=== PATIENT | male | born 1950 | race Caucasian/White ===

== ENCOUNTER 2016-12-07 10:16 | Emergency (ER) | payer MEDICARE, OTHER ==
[~2016-12-07] VITALS: Ht 177.8 cm; Wt 104.3 kg
[~2016-12-07 10:16] MED LIST: FENO145T20 PO; FERR325T50 PO; FOLI1TAB6 PO; GABA-497 PO; LISI10TA6 PO; NAFC1INJ IJ; OMEP20TA12 PO; ONDA8TAB6 PO; TAM04C PO
[2016-12-07 10:33] VITALS: BP 131/91
[2016-12-07] MEDS ORDERED: KETOROLAC TROMETH 60MG/2ML VIAL IM ONE (11:45)
== END 2016-12-07 12:02 | disposition home or self-care (01) ==
LOC: ER 10:16
DX: G44.209 Tension-type headache, unspecified, not intractable (principal); H65.01 Acute serous otitis media, right ear; I25.10 Atherosclerotic heart disease of native coronary artery without angina pectoris; K21.9 Gastro-esophageal reflux disease without esophagitis; E78.5 Hyperlipidemia, unspecified; I10 Essential (primary) hypertension
CPT/HCPCS: 70450; 96372; 99284; J1885

== ENCOUNTER 2020-06-03 12:40 | Inpatient (IN) | payer OTHER ==
[~2020-06-03] VITALS: Ht 172.7 cm; Wt 102.7 kg
[~2020-06-03 12:40] MED LIST changes: -FENO145T20 PO; +FENO145T27 PO; -GABA-497 PO; +GABA300C10 PO; +LISI-648 PO; -LISI10TA6 PO; -OMEP20TA12 PO; +OMEP5TAB PO; +ONDA-143 PO; -ONDA8TAB6 PO
[2020-06-03 13:58] LABS: Basophils # (auto) 0 10 ^3/uL (0-0.2); Eosinophils # (auto) 0.1 10 ^3/uL (0-0.8); Hemoglobin 10.1 g/dL (13.5-17.5); Monocytes # (auto) 0.6 10 ^3/uL (0-1.3); White Blood Cell 7.2 10^3/uL (4.4-10.8)
[2020-06-03 14:00] LABS: Basophils % (auto) 0.5 % (0.0-2.0); Eosinophils % (auto) 1.3 % (0.0-7.0); Hematocrit 31.2 % (41.0-53.0); Lymphocytes # (auto) 1.9 10 ^3/uL (0.4-5.4); Lymphocytes % (auto) 26.2 % (10.0-50.0); Mean Corpuscular Hemoglobin 25.6 pg (28.0-32.0); Mean Corpuscular Hgb Conc. 32.2 g/dL (32.0-36.0); Mean Corpuscular Volume 79.4 fL (80.0-100.0); Monocytes % (auto) 8.3 % (0.0-12.0); Neutrophils # (auto) 4.6 10 ^3/uL (1.6-8.6); Neutrophils % (auto) 63.7 % (37.0-80.0); Platelet Count (auto) 351 10^3/uL (140-450); Red Blood Cells 3.93 10^6/uL (4.5-5.90)
[2020-06-03 14:06] LABS: Red Cell Distribution Width 20.3 % (11.8-14.3)
[2020-06-03 14:13] LABS: INR 1.02 (0.9-1.15); Partial Thromboplastin Time 28.3 sec (23.0-31.2)
[2020-06-03 14:34] LABS: Albumin 3.6 g/dL (3.4-5.0); Anion Gap 5 (5-15); Blood Urea Nitrogen 14 mg/dL (7-18); Calcium 7.7 mg/dL (8.5-10.1); Carbon Dioxide 23 mmol/L (21-32); Chloride 111 mmol/L (98-107); Glucose 86 mg/dL (74-106); Magnesium 2.1 mg/dL (1.6-2.6); Potassium 4.5 mmol/L (3.5-5.1); Sodium 139 mmol/L (136-145)
[2020-06-03 14:41] LABS: Alanine Aminotransferase 16 U/L (16-61); Alkaline Phosphatase 73 U/L (45-117); Aspartate Aminotransferase 10 U/L (15-37); BUN/Creatinine Ratio 19.7; Bilirubin, Total 0.2 mg/dL (0.2-1.0); GFR African American 141 mL/min; GFR Non-African American 116 mL/min; Total Protein 6.6 g/dL (6.4-8.2)
[2020-06-03] MEDS ORDERED: ASPirin 81 mg TAB PO ONE (17:30)
[2020-06-03] MEDS ORDERED: NITROGLYCERIN 0.4 MG SL TAB SL PRN (17:30)
[2020-06-03] MEDS ORDERED: MORPHINE SULF INJ 2 MG/ML SYRINGE 1ML IV PRN ×2 (17:30→18:00)
[2020-06-03] MEDS ORDERED: ACETAMINOPHEN 500 MG TAB PO PRN (18:00)
[2020-06-03] MEDS ORDERED: ONDANSETRON HCL 4 MG/2 ML VIAL IV PRN (18:00)
[2020-06-03] MEDS ORDERED: traMADol HCL 50 MG TAB PO PRN (18:00)
[2020-06-03] MEDS ORDERED: LACTULOSE 20Gm/30ML SOLN PO PRN (18:00)
[2020-06-03] MEDS ORDERED: TEMAZEPAM 15 MG CAP PO PRN (18:00)
[2020-06-03] MEDS ORDERED: ENOXAPARIN SOD 100 MG/1 ML SYRINGE SC ONE (19:00)
[2020-06-03] MEDS: ATORVASTATIN 20 MG TAB PO SCH (21:57)
[2020-06-03] MEDS: FAMOTIDINE 20 MG TAB PO SCH (21:57)
[2020-06-04 08:10] VITALS: BP 146/82
[2020-06-04] MEDS ORDERED: MECL25TA18 PO (09:25)
[2020-06-04] MEDS ORDERED: SIMV-13 PO (09:25)
[2020-06-04] MEDS ORDERED: HYDR200T36 PO (09:25)
[2020-06-04] MEDS ORDERED: RASA1TAB4 PO (09:25)
[2020-06-04] MEDS ORDERED: NAP500T PO (09:25)
[2020-06-04] MEDS: FAMOTIDINE 20 MG TAB PO SCH ×2 (09:55→22:24)
[2020-06-04] MEDS: ASPirin 81 mg TAB PO SCH (09:55)
[2020-06-04] MEDS ORDERED: ENOXAPARIN SOD 40 MG/0.4 ML SYRINGE SC SCH (10:00)
[2020-06-04] MEDS: ENOXAPARIN SOD 100 MG/1 ML SYRINGE SC SCH ×2 (10:03→22:24)
[2020-06-04] MEDS ORDERED: IOHEXOL 350 MG/ML 100ML IJ ONE (12:58)
[2020-06-04 16:25] VITALS: BP 138/84
[2020-06-04 16:34] LABS: Cholesterol 166 mg/dL (< 200); HDL Cholesterol 48 mg/dL (40-59); LDL Cholesterol 104 mg/dL (< 100); Triglycerides 137 mg/dL (< 150)
[2020-06-04] MEDS ORDERED: SODIUM CHLORIDE 0.9% 1,000 ML IV ONE (20:30)
[2020-06-04 22:00] VITALS: BP 140/79
[2020-06-04] MEDS: ATORVASTATIN 20 MG TAB PO SCH (22:24)
[2020-06-05 05:00] VITALS: BP 149/84
[2020-06-05 05:54] LABS: Calcium 8.7 mg/dL (8.5-10.1); Potassium 3.7 mmol/L (3.5-5.1)
[2020-06-05 05:57] LABS: BUN/Creatinine Ratio 21.4
[2020-06-05 08:00] VITALS: BP 147/90
[2020-06-05] MEDS: ENOXAPARIN SOD 100 MG/1 ML SYRINGE SC SCH (10:00)
[2020-06-05] MEDS: FAMOTIDINE 20 MG TAB PO SCH (10:12)
[2020-06-05] MEDS: ASPirin 81 mg TAB PO SCH (10:13)
[2020-06-05 12:42] VITALS: BP 150/84
[2020-06-05] MEDS ORDERED: IODIXANOL 320MG/ML 100ML BTL IV ONE (12:44)
[2020-06-05] MEDS ORDERED: LIDOCAINE 2%HCL (LOCAL ANESTH.) INJ 20ML MDV ONE (12:44)
[2020-06-05] MEDS ORDERED: ANGIOMAX 250 MG VIAL IV ONE (12:56)
[2020-06-05] MEDS ORDERED: SODIUM CHL 0.9% 50 ML ONE (12:57)
[2020-06-05] MEDS ORDERED: MIDAZOLAM HCL 1MG/1ML-2 ML VIAL ONE (12:57)
[2020-06-05] MEDS ORDERED: fentaNYL CITRATE 100 MCG/2 ML VL ONE (12:57)
[2020-06-05] MEDS ORDERED: HEPARIN SODIUM (PORCINE) 5000 UNITS/ML 1ML VIAL ONE (12:57)
[2020-06-05] MEDS ORDERED: VERAPAMIL 2.5MG/ML INJ 2ML VIAL IV ONE (12:57)
[2020-06-05 17:00] VITALS: BP 145/83
[2020-06-05] MEDS ORDERED: APIX5TAB4 PO (18:37)
[2020-06-05 19:25] VITALS: BP 145/83
== END 2020-06-05 20:20 | disposition home health service (06) | DRG 287 ==
LOC: ER 12:40 → TELE 12:41 → TELE-CENTR 06-04 06:42
PROVIDERS: ADMIT Internal Medicine; ATTEND Internal Medicine
PROC: 4A023N7 Measurement of Cardiac Sampling and Pressure, Left Heart, Percutaneous Approach (ICD-10-PCS; principal; 2020-06-05)
PROC: B2111ZZ Fluoroscopy of Multiple Coronary Arteries using Low Osmolar Contrast (ICD-10-PCS; 2020-06-05)
PROC: B2151ZZ Fluoroscopy of Left Heart using Low Osmolar Contrast (ICD-10-PCS; 2020-06-05)
DX: R07.9 Chest pain, unspecified (principal); I82.411 Acute embolism and thrombosis of right femoral vein; I50.42 Chronic combined systolic (congestive) and diastolic (congestive) heart failure; I25.10 Atherosclerotic heart disease of native coronary artery without angina pectoris; K21.9 Gastro-esophageal reflux disease without esophagitis; I45.10 Unspecified right bundle-branch block; M19.90 Unspecified osteoarthritis, unspecified site; N20.0 Calculus of kidney; N40.0 Benign prostatic hyperplasia without lower urinary tract symptoms; Z20.822 Contact with and (suspected) exposure to COVID-19; I11.0 Hypertensive heart disease with heart failure; E78.5 Hyperlipidemia, unspecified; E66.01 Morbid (severe) obesity due to excess calories; D63.8 Anemia in other chronic diseases classified elsewhere; D50.9 Iron deficiency anemia, unspecified; Z68.35 Body mass index [BMI] 35.0-35.9, adult; Z80.1 Family history of malignant neoplasm of trachea, bronchus and lung; Z79.01 Long term (current) use of anticoagulants; Z80.8 Family history of malignant neoplasm of other organs or systems; Z82.49 Family history of ischemic heart disease and other diseases of the circulatory system; Z85.828 Personal history of other malignant neoplasm of skin; Z83.3 Family history of diabetes mellitus; Z86.73 Personal history of transient ischemic attack (TIA), and cerebral infarction without residual deficits; Z87.442 Personal history of urinary calculi
CPT/HCPCS: 36415; 71045; 71275; 80048; 80053; 80061; 82550; 83735; 83880; 84443; 84484; 85025; 85379; 85610; 85652; 85730; 86141; 87426; 93005; 93458; 93970; 99152; 99153; G0378; J2250; J2405; Q9967

== ENCOUNTER 2023-10-14 08:58 | Inpatient (IN) | payer OTHER ==
[~2023-10-14] VITALS: Ht 185.4 cm; Wt 104.5 kg
[~2023-10-14 08:58] MED LIST changes: +APIX5TAB4 PO; +BACI1OIN45 EX; +CEFD300C2 PO; -FENO145T27 PO; -FERR325T50 PO; -FOLI1TAB6 PO; +FURO1TAB33 PO; +GABA-1250 PO; -GABA300C10 PO; +HYDR200T36 PO; -LISI-648 PO; +LISI10TA34 PO; +MECL-90 PO; -NAFC1INJ IJ; -ONDA-143 PO; +RASA1TAB4 PO; +SIMV40TA18 PO; +SPIR25TA PO; -TAM04C PO; +TAMS-35 PO; +TRAM50TA2 PO
[2023-10-14 09:25] VITALS: PULSE 57; RESP 12; O2SAT 98
[2023-10-14 09:42] LABS: Basophils # (auto) 0 10 ^3/uL (0-0.2); Basophils % (auto) 0.7 % (0.0-2.0); Eosinophils # (auto) 0.1 10 ^3/uL (0-0.8); Eosinophils % (auto) 1.3 % (0.0-7.0); Hematocrit 31.5 % (41.0-53.0); Hemoglobin 9.7 g/dL (13.5-17.5); Lymphocytes % (auto) 34.6 % (10.0-50.0); Mean Corpuscular Hemoglobin 25.6 pg (28.0-32.0); Mean Corpuscular Hgb Conc. 30.6 g/dL (32.0-36.0); Mean Corpuscular Volume 83.7 fL (80.0-100.0); Monocytes # (auto) 0.5 10 ^3/uL (0-1.3); Neutrophils # (auto) 3.3 10 ^3/uL (1.6-8.6); Neutrophils % (auto) 55.4 % (37.0-80.0); Red Blood Cells 3.77 10^6/uL (4.5-5.90); Red Cell Distribution Width 18.4 % (11.8-14.3); White Blood Cell 5.9 10^3/uL (4.4-10.8)
[2023-10-14 10:08] LABS: Albumin 4.2 g/dL (3.2-4.8); Alkaline Phosphatase 87 U/L (46-116); Anion Gap 10 (5-15); Aspartate Aminotransferase 9 U/L (13-40); BUN/Creatinine Ratio 26.5 (10.0-20.0); Blood Alcohol < 3.0 mg/dL (<10); Blood Urea Nitrogen 22 mg/dL (9-23); Calcium 8.8 mg/dL (8.5-10.1); Carbon Dioxide 22 mmol/L (20-30); Chloride 107 mmol/L (98-107); Glucose 98 mg/dL (74-106); Sodium 139 mmol/L (136-145)
[2023-10-14 10:09] LABS: Bilirubin, Total 0.2 mg/dL (0.2-1.0); Total Protein 6.5 g/dL (5.7-8.2)
[2023-10-14 10:13] LABS: Alanine Aminotransferase 9 U/L (7-40)
[2023-10-14 11:18] LABS: Urine Bacteria None Seen /hpf (None Seen)
[2023-10-14 11:44] LABS: Urine Blood Negative /uL (Negative); Urine Budding Yeast OCCASIONAL /hpf (None Seen); Urine Clarity Clear (Clear); Urine Color Yellow (Yellow); Urine Hyaline Cast MANY /lpf (0 - 2); Urine Protein, UAD TRACE (Negative); Urine Specific Gravity 1.044 (1.001-1.035); Urine Urobilinogen Normal (Negative); Urine WBC 1 /hpf (0 - 3); Urine pH 5.5 (5.0-9.0)
[2023-10-14 12:34] LABS: Amphetamine Screen, Urine Neg (NEGATIVE); Barbiturate Scree,Urine Neg (NEGATIVE); Cocaine Screen, Urine Neg (NEGATIVE); Opiate Scree,Urine Neg (NEGATIVE)
[2023-10-14 12:35] LABS: Benzodiazephine Screen, Urine Neg (NEGATIVE); Cannabinoid Screen, Urine Neg (NEGATIVE); Phencyclidine Screen, Urine Neg (NEGATIVE)
[2023-10-14] MEDS ORDERED: NITROGLYCERIN 0.4 MG SL TAB SL PRN (17:00)
[2023-10-14] MEDS ORDERED: DOCUSATE SOD 100 MG CAP PO PRN (17:00)
[2023-10-14] MEDS ORDERED: MORPHINE SULFATE INJ 2 MG/ml SYRG IV PRN ×2 (17:00)
[2023-10-14] MEDS ORDERED: ACETAMINOPHEN 325 MG TAB PO PRN (17:00)
[2023-10-14] MEDS ORDERED: HYDROcodone-ACET 5/325MG TAB PO PRN (17:00)
[2023-10-14] MEDS ORDERED: ONDANSETRON HCL 4 MG/2 ML VIAL IV PRN (17:00)
[2023-10-14 19:30] VITALS: PULSE 72; RESP 18; O2SAT 96
[2023-10-14] MEDS: APIXABAN 5 MG TAB PO SCH (22:28)
[2023-10-14] MEDS: traMADol HCL 50 MG TAB PO SCH (22:29)
[2023-10-15 04:28] LABS: Anion Gap 7 (5-15); Carbon Dioxide 22 mmol/L (20-30); Chloride 109 mmol/L (98-107); Potassium 3.9 mmol/L (3.5-5.1); Sodium 138 mmol/L (136-145)
[2023-10-15 04:29] LABS: Calcium 8.7 mg/dL (8.7-10.4)
[2023-10-15 04:32] LABS: Eosinophils # (auto) 0.1 10 ^3/uL (0-0.8); Hematocrit 31.3 % (41.0-53.0); Mean Corpuscular Hemoglobin 25.6 pg (28.0-32.0); Monocytes # (auto) 0.5 10 ^3/uL (0-1.3); Neutrophils # (auto) 3.8 10 ^3/uL (1.6-8.6); Nucleated Red Blood Cells % 0.1 %; White Blood Cell 6.5 10^3/uL (4.4-10.8)
[2023-10-15 04:34] LABS: BUN/Creatinine Ratio 25.4 (10.0-20.0); Basophils # (auto) 0 10 ^3/uL (0-0.2); Basophils % (auto) 0.7 % (0.0-2.0); Blood Urea Nitrogen 15 mg/dL (9-23); Eosinophils % (auto) 1.6 % (0.0-7.0); Glucose 82 mg/dL (74-106); Hemoglobin 9.7 g/dL (13.5-17.5); Lymphocytes % (auto) 31.5 % (10.0-50.0); Mean Corpuscular Hgb Conc. 30.9 g/dL (32.0-36.0); Mean Corpuscular Volume 83.1 fL (80.0-100.0); Monocytes % (auto) 7.3 % (0.0-12.0); Neutrophils % (auto) 58.9 % (37.0-80.0); Red Blood Cells 3.77 10^6/uL (4.5-5.90); Red Cell Distribution Width 18.5 % (11.8-14.3)
[2023-10-15 05:00] VITALS: TEMP 97.6
[2023-10-15 08:12] VITALS: PULSE 81; RESP 16; O2SAT 96
[2023-10-15] MEDS ORDERED: ENOXAPARIN SOD 30 MG/0.3 ML SYRINGE SC SCH (10:00)
[2023-10-15] MEDS: SPIRONOLACTONE 25 MG TAB PO SCH (10:14)
[2023-10-15] MEDS: ATORVASTATIN 20 MG TAB PO SCH (10:15)
[2023-10-15] MEDS: FUROSEMIDE 20 MG TAB PO SCH (10:18)
[2023-10-15] MEDS ORDERED: GABA800T97 PO (13:40)
[2023-10-15] MEDS ORDERED: PANT40TA2 PO (13:43)
[2023-10-15] MEDS ORDERED: METO1TAB77 PO (13:43)
[2023-10-15 14:02] VITALS: BP 112/65; PULSE 108; RESP 20; O2SAT 97
== END 2023-10-15 17:37 | disposition home or self-care (01) | DRG 640 ==
LOC: ER 08:58 → EDUNIT# 08:58 → EDBD 08:58 → TELE 16:57
PROVIDERS: ADMIT Internal Medicine; ATTEND Internal Medicine
DX: E86.0 Dehydration (principal); G93.41 Metabolic encephalopathy; D64.9 Anemia, unspecified; I50.9 Heart failure, unspecified; I25.10 Atherosclerotic heart disease of native coronary artery without angina pectoris; I11.0 Hypertensive heart disease with heart failure; K21.9 Gastro-esophageal reflux disease without esophagitis; E78.5 Hyperlipidemia, unspecified; G20.A1 Parkinson's disease without dyskinesia, without mention of fluctuations; N40.0 Benign prostatic hyperplasia without lower urinary tract symptoms; I48.0 Paroxysmal atrial fibrillation; Z86.73 Personal history of transient ischemic attack (TIA), and cerebral infarction without residual deficits; Z85.828 Personal history of other malignant neoplasm of skin; Z87.442 Personal history of urinary calculi; Z79.01 Long term (current) use of anticoagulants; R41.0 Disorientation, unspecified
CPT/HCPCS: 36415; 70450; 70551; 80048; 80053; 80307; 80320; 81001; 82140; 82607; 84484; 85025; 87040; 93005; G0378

== ENCOUNTER 2024-08-11 18:29 | Emergency (ER) | payer OTHER ==
[~2024-08-11] VITALS: Ht 175.3 cm; Wt 100.0 kg
[~2024-08-11 18:29] MED LIST changes: -BACI1OIN45 EX; -CEFD300C2 PO; -GABA-1250 PO; +GABA800T97 PO; -HYDR200T36 PO; -LISI10TA34 PO; -MECL-90 PO; +METO1TAB77 PO; -OMEP5TAB PO; +PANT40TA2 PO
--- NOTE | 2024-08-11 18:51 | ED.PDOC ---
History of Present Illness HPI Comments 74-year-old male presents with a chief complaint of generalized weakness, nausea, vomiting, diarrhea, and numbness x onset Saturday (08/07/2024). Per EMS, patient had a cancer spot removed on Saturday from his right forehead and received an antibiotic shot that he does not know what it was. Patient mentions that now he feels weaker than his baseline, has numbness to his bilateral feet, and has had N/V/D. Patient is hypertensive on arrival at 165/90. Blood sugar was 95. Time Seen by MD: 18:40 Primary Care Provider: BRAD Reviewed Notes: Medications, Allergies Allergies: Coded Allergies: NO KNOWN ALLERGIES (Unverified , 01/11/12) Home Meds Active Scripts Spironolactone (Aldactone) 25 Mg Tab, 1 TAB PO DAILY for 10 Days, #10 TAB 1 Refill Prov:CATHI CHAUDHARI MD 04/11/22 Furosemide (Lasix) 20 Mg Tb, 1 TAB PO DAILY for 10 Days, #10 TAB 1 Refill Prov:CATHI CHAUDHARI MD 04/11/22 Tramadol Hcl (Tramadol Hcl) 50 Mg Tab, 50 MG PO TID for 5 Days, #15 TAB Prov:CATHI CHAUDHARI MD 04/11/22 Apixaban Base (Eliquis Starter Pack) 5 Mg Tab, 5 MG PO UD, #74 TAB Take 10 mg by mouth every 12 hours for 7 days then 5 mg by mouth every 12 hours. Prov:MARCIA CULVER MD 06/05/20 Reported Medications Metoprolol Tartrate (Lopressor) 50 Mg Tab, 1 TAB PO BID 10/15/23 Pantoprazole Sodium Sesquihydr (Protonix) 40 Mg Tab, 1 TAB PO DAILY 10/15/23 Gabapentin (Gabapentin) 800 Mg Tab, 1 TAB PO TID 10/15/23 Rasagiline Mesylate (Rasagiline Mesylate) 1 Mg Tab, 1 TAB PO DAILY 06/04/20 Simvastatin (Simvastatin) 40 Mg Tab, 40 MG PO DAILY for 30 Days 06/04/20 Tamsulosin Hcl (Flomax) 0.4 Mg Cap, 2 CAP PO HS 01/11/12 Information Source: Patient, Emergency Med Personnel Mode of Arrival: EMS Severity: Moderate Timing: Days Duration: Since onset Prehospital treatment: Accucheck, Technology Administrator Past Medical History PAST MEDICAL HISTORY: Anemia, Arthritis, CAD, Cancer, CHF, GERD, High Lipids, HTN, Kidney Stones, TIA Surgical History: Hernia Repair Family History Family History: Unknown Social History Smoker: Non-Smoker Alcohol: Denies ETOH Use Drugs: Denies Drug Use Lives In: Home Constitutional: reports: weakness; denies: chills, diaphoresis, fatigue, fever, malaise, sweats, others EENTM: denies: blurred vision, double vision, ear bleeding, ear discharge, ear drainage, ear pain, ear ringing, eye pain, eye redness, hearing loss, mouth pain, mouth swelling, nasal discharge, nose bleeding, nose congestion, nose pain, photophobia, tearing, throat pain, throat swelling, voice changes, others Respiratory: denies: cough, hemoptysis, orthopnea, SOB at rest, shortness of breath, SOB with excertion, stridor, wheezing, others Cardiovascular: denies: chest pain, dizzy spells, diaphoresis, Dyspnea on exertion, edema, irregular heart beat, left arm pain, lightheadedness, palpit ations, PND, syncope, others Gastrointestinal: reports: diarrhea, nausea, vomiting; denies: abdomen distended, abdominal pain, blood streaked bowels, constipated, dysphagia, difficulty swallowing, hematemesis, melena, poor appetite, poor fluid intake, rectal bleeding, rectal pain, others Genitourinary: denies: burning, dysuria, flank pain, frequency, hematuria, incontinence, penile discharge, penile sore, pain, testicle pain, testicle swelling, urgency, others Neurological: reports: numbness; denies: dizziness, fainting, headache, left sided numbness, left sided weakness, paresthesia, pre-existing deficit, right sided numbness, right sided weakness, seizure, speech problems, tingling, tremors, weakness, others Musculoskeletal: denies: back pain, gout, joint pain, joint swelling, muscle pain, muscle stiffness, neck pain, others Integumetry: denies: bruises, change in color, change in hair/nails, dryness, laceration, lesions, lumps, rash, wounds, others Allergic/Immunocompromised: denies: Difficulty Healing, Frequent Infections, Hives, Itching, others Hematologic/Lymphatic: denies: anemia, blood clots, easy bleeding, easy bruising, swollen glands, others Endocrine: denies: excessive hunger, excessive sweating, excessive thirst, excessive urination, flushing, intolerance to cold, intolerance to heat, unexplained weight gain, unexplained weight loss, others Psychiatric: denies: anxiety, bipolar disorder, depression, hopeless, panic disorder, schizophrenia, sleepless, suicidal, others All Other Systems: Reviewed and Negative Physical Exam General Appearance: No Apparent Distress, Normal HEENT: Normal ENT Inspection, Pharynx Normal, TMs Normal Neck: Full Range of Motion, Non-Tender, Normal, Normal Inspection Respiratory: Chest Non-Tender, Lungs Clear, No Accessory Muscle Use, No Respiratory Distress, Normal Breath Sounds Cardiovascular: No Edema, No JVD, No Murmur, No Gallop, Normal Peripheral Pulses, Regular Rate/Rhythm Breast Exam: Deferred Gastrointestinal: No Organomegaly, Non Tender, No Pulsatile Mass, Normal Bowel Sounds, Soft Genitalia: Deferred Pelvic: Deferred Rectal: Deferred Extremities: No calf tenderness, Normal capillary refill, Normal inspection, Normal range of motion, Non-tender, No pedal edema Musculoskeletal : Apperance: Normal Neurologic: Alert, national account representative II-XII nml as Tested, No Motor Deficits, Normal Affect, Normal Mood, No Sensory Deficits Cerebellar Function: Normal Reflexes: Normal Skin: Dry, Normal Color, Warm Lymphatic: No Adenopathy Was a procedure done? Was a procedure done?: No Differential Dx Considerations may include: ACS, CVA, viral syndrome, electrolyte abnormality X-Ray, Labs, Meds, VS Vital Signs Date Time Temp Pulse Resp B/P (MAP) Pulse Ox O2 Delivery O2 Flow Rate FiO2 08/11/24 19:19 99.0 74 24 177/88 (117) 98 99.0 08/11/24 18:35 81 08/11/24 18:35 81 Lab Test 08/11/24 22:52 08/11/24 21:14 08/11/24 19:36 Range/Units Troponin I High Sensitivity Pending 11 13 </=54 ng/L White Blood Count 6.0 4.4-10.8 10^3/uL Red Blood Count 4.34 L 4.5-5.90 10^6/uL Hemoglobin 10.2 L 13.5-17.5 g/dL Hematocrit 33.8 L 41.0-53.0 % Mean Corpuscular Volume 77.8 L 80.0-100.0 fL Mean Corpuscular Hemoglobin 23.6 L 28.0-32.0 pg Mean Corpuscular Hemoglobin Concent 30.3 L 32.0-36.0 g/dL Red Cell Distribution Width 19.5 H 11.8-14.3 % Platelet Count 341 140-450 10^3/uL Mean Platelet Volume 6.5 L 6.9-10.8 fL Neutrophils (%) (Auto) 60.9 37.0-80.0 % Lymphocytes (%) (Auto) 28.8 10.0-50.0 % Monocytes (%) (Auto) 8.9 0.0-12.0 % Eosinophils (%) (Auto) 0.9 0.0-7.0 % Basophils (%) (Auto) 0.5 0.0-2.0 % Neutrophils # (Auto) 3.7 1.6-8.6 10 ^3/uL Lymphocytes # (Auto) 1.7 0.4-5.4 10 ^3/uL Monocytes # (Auto) 0.5 0-1.3 10 ^3/uL Eosinophils # (Auto) 0.1 0-0.8 10 ^3/uL Basophils # (Auto) 0 0-0.2 10 ^3/uL Nucleated Red Blood Cells 0.1 % Sodium Level 140 136-145 mmol/L Potassium Level 4.4 3.5-5.1 mmol/L Chloride Level 106 98-107 mmol/L Carbon Dioxide Level 24 20-31 mmol/L Anion Gap 10 5-15 Blood Urea Nitrogen 9 9-23 mg/dL Creatinine 0.70 0.700-1.30 mg/dL Glomerular Filtration Rate Calc 96 >90 mL/min BUN/Creatinine Ratio 12.9 10.0-20.0 Serum Glucose 108 H 74-106 mg/dL Calcium Level 10.6 H 8.7-10.4 mg/dL Time of 1ST Reevaluation: 19:10 Reevaluation 1ST: Unchanged Patient Education/Counseling: Diagnosis, Treatment, Prognosis Family Education/Counseling: No Family Present Departure 1 Departure Time of Disposition: 23:04 (Patient with new onset paresthesias and numbness and tingling in his mostly on was weakness pain patient's x-ray labs are benign. Limit patient further workup. Radiologist recommends echo and Cardiology consult baseline cardiomegaly on chest x-ray.) Impression: Primary Impression: Near syncope Additional Impressions: Paresthesias Generalized weakness Disposition: ADMITTED INPATIENT Admit to: Med Surg Condition: Serious Critical Care Note Critical Care Time?: No Stability Stability form required: No Heart Score Heart Score: Heart Score Response (Comments) Value History N/A 0 EKG N/A 0 Age N/A 0 Risk Factors N/A 0 Troponin N/A 0 Total 0 I personally scribed for EMILY MARI MD ([email or web address]) on 08/11/24 at 18:51. Electronically submitted by Oliver Kumar [email or web address]). EMILY MARI MD Aug 11, 2024 18:51
--- NOTE | 2024-08-11 18:57 | ECG ---
[facility] Test Date: 2024-08-11 Test Time: 18:35:52 Pat Name: YESENIA CAPUTO Department: ED Room: Gender: M Casting Operator: gp : [id number] Requested By: EMILY MARI Order Number: [id number] Reading MD: Geoffrey Contreras Measurements Intervals [place] Rate: 81 P: 66 PA: 161 QRS: 4 QRSD: 151 T: 27 QT: 441 QTc: 512 Interpretive Statements Sinus rhythm Atrial premature complex Sinus pause Right bundle branch block Baseline wander in lead(s) V6 Electronically Signed On 08-12-2024 13:19:30 PDT by Geoffrey Contreras Please click the below link to view image of tracing.
[2024-08-11 19:45] LABS: Basophils # (auto) 0 10 ^3/uL (0-0.2); Basophils % (auto) 0.5 % (0.0-2.0); Eosinophils # (auto) 0.1 10 ^3/uL (0-0.8); Eosinophils % (auto) 0.9 % (0.0-7.0); Hematocrit 33.8 % (41.0-53.0); Hemoglobin 10.2 g/dL (13.5-17.5); Lymphocytes # (auto) 1.7 10 ^3/uL (0.4-5.4); Lymphocytes % (auto) 28.8 % (10.0-50.0); Mean Corpuscular Hemoglobin 23.6 pg (28.0-32.0); Mean Corpuscular Hgb Conc. 30.3 g/dL (32.0-36.0); Mean Corpuscular Volume 77.8 fL (80.0-100.0); Monocytes # (auto) 0.5 10 ^3/uL (0-1.3); Monocytes % (auto) 8.9 % (0.0-12.0); Neutrophils # (auto) 3.7 10 ^3/uL (1.6-8.6); Neutrophils % (auto) 60.9 % (37.0-80.0); Nucleated Red Blood Cells % 0.1 %; Platelet Count (auto) 341 10^3/uL (140-450); Red Blood Cells 4.34 10^6/uL (4.5-5.90); Red Cell Distribution Width 19.5 % (11.8-14.3)
[2024-08-11 19:54] LABS: Chloride 106 mmol/L (98-107); Potassium 4.4 mmol/L (3.5-5.1); Sodium 140 mmol/L (136-145)
[2024-08-11 19:55] LABS: Anion Gap 10 (5-15); Carbon Dioxide 24 mmol/L (20-31)
[2024-08-11 20:00] LABS: BUN/Creatinine Ratio 12.9 (10.0-20.0)
[2024-08-11 20:08] LABS: Blood Urea Nitrogen 9 mg/dL (9-23); Calcium 10.6 mg/dL (8.7-10.4); Glucose 108 mg/dL (74-106)
--- NOTE | 2024-08-11 22:37 | DVH ---
CHEST RADIOGRAPH Indication: weakness, parasthesias Technique: Single frontal view of the chest was obtained Comparison: CHEST PORTABLE on DOS: 06/03/20 FINDINGS: Cardiomegaly. Slightly prominent pulmonary arteries no infiltrates or effusions peripheral vasculature are slightly prominent but still within normal limits. IMPRESSION: 1. Cardiomegaly. Patient has not had a cardiac echo at I would suggest cardiac echo
--- NOTE | 2024-08-11 22:44 | DVH ---
CT HEAD WITHOUT CONTRAST INDICATION: paresthesias, weakness COMPARISON: CT HEAD WITHOUT CONTRAST on DOS: 10/14/23 TECHNIQUE: CT of the head without intravenous contrast. RADIATION DOSE: CTDIvol: 65.77 mGy, DLP: 1164.36 mGy*cm FINDINGS: There is no evidence of intracranial hemorrhage, infarct, extra-axial collection, mass effect, midli ne shift, herniation or hydrocephalus. Mild ventricular and sulcal enlargement related to mild cerebr al volume loss. The carpenter-white differentiation is intact. Considerable mucosal thickening with complete opacification of right maxillary sinus which was also p resent on the prior CT scan from September 2023. The remainder of the paranasal sinuses are clear as are the mastoid air cells and middle ear cavities. Soft tissues and osseous structures are unremarkable. IMPRESSION: No acute/new intracranial abnormality identified.
[2024-08-12] MEDS: ONDANSETRON HCL 4 MG/2 ML VIAL IV ONE (01:02)
[2024-08-12] MEDS: SODIUM CHLORIDE 0.9% 1,000 ML IV ONE (01:03)
[2024-08-12] MEDS: ACETAMINOPHEN 325 MG TAB PO ONE (01:03)
[2024-08-12 01:15] VITALS: BP 147/92; PULSE 76; RESP 16; TEMP 97.8; O2SAT 100
--- NOTE | 2024-08-12 01:54 | DVHINCON2 ---
MEÑO FLORES ATMOSPHERIC CHEMIST 08/12/24 0154: Date of service: Aug 12, [address] Castellanos Reason for Consultation Medical management History of Present Illness 74-year-old male with past medical history of Parkinson's, CHF, hypertension, hyperlipidemia, CAD presents with a chief complaint of nausea, vomiting, diarrhea x3 days. Patient is also endorsing generalized weakness and falls. Patient endorses he has not followed up with Cardiology. And does have swelling of bilateral lower extremities. Also states he has had paresthesia of the right lower extremity over the last few months likely related to his Parkinson's disease. he is being followed on an outpatient basis by Neurologist Dr. Adrian. While in the emergency department the patient was treated with 1 L normal saline bolus and IV Zofran. Patient is able to tolerate oral intake at this time. During the emergency department evaluation CBC was unremarkable, BMP was unremarkable, troponin negative x3, chest x-ray was positive for cardiomegaly, CT of the head had no acute intracranial abnormalities. At this time patient denies fevers, chills, headaches, unilateral weakness, shortness of breath, chest pain, palpitations, hematemesis, hematochezia, melena. Past Medical History Parkinson's, CHF, hypertension, CAD Family History: Diabetes mellitus G8 FATHER FH: heart attack G8 FATHER FH: hepatic cirrhosis G8 FATHER FH: lung cancer G8 FATHER FH: throat cancer G8 FATHER Family history: Cardiovascular disease G8 MOTHER Social History Denies EtOH, illicit drug use Allergies: Coded Allergies: NO KNOWN ALLERGIES (Unverified , 01/11/12) Home Meds Active Scripts Pantoprazole Sodium Sesquihydr (Protonix) 40 Mg Tab, 1 TAB PO DAILY for 14 Days, #14 TAB Prov:EMILY MARI MD 08/12/24 Ondansetron Odt 4MG Tab (ZOFRAN PO) 4 Mg Tb, 4 MG PO TID PRN for 4 Days, #12 TAB ODT TAB-DISSOLVE IN MOUTH, THEN SWALLOW Prov:EMILY MARI MD 08/12/24 Spironolactone (Aldactone) 25 Mg Tab, 1 TAB PO DAILY for 10 Days, #10 TAB 1 Refill Prov:CATHI CHAUDHARI MD 04/11/22 Furosemide (Lasix) 20 Mg Tb, 1 TAB PO DAILY for 10 Days, #10 TAB 1 Refill Prov:CATHI CHAUDHARI MD 04/11/22 Tramadol Hcl (Tramadol Hcl) 50 Mg Tab, 50 MG PO TID for 5 Days, #15 TAB Prov:CATHI CHAUDHARI MD 04/11/22 Apixaban Base (Eliquis Starter Pack) 5 Mg Tab, 5 MG PO UD, #74 TAB Take 10 mg by mouth every 12 hours for 7 days then 5 mg by mouth every 12 hours. Prov:MARCIA CULVER MD 06/05/20 Reported Medications Metoprolol Tartrate (Lopressor) 50 Mg Tab, 1 TAB PO BID 10/15/23 Gabapentin (Gabapentin) 800 Mg Tab, 1 TAB PO TID 10/15/23 Rasagiline Mesylate (Rasagiline Mesylate) 1 Mg Tab, 1 TAB PO DAILY 06/04/20 Simvastatin (Simvastatin) 40 Mg Tab, 40 MG PO DAILY for 30 Days 06/04/20 Tamsulosin Hcl (Flomax) 0.4 Mg Cap, 2 CAP PO HS 01/11/12 Review of Systems 10 systems reviewed and negative except as per HPI Vital Signs Vital Signs Date Time Temp Pulse Resp B/P (MAP) Pulse Ox O2 Delivery O2 Flow Rate FiO2 08/12/24 01:15 97.8 76 16 147/92 (110) 100 97.8 08/12/24 01:15 Room Air* 0 21 Physical Exam GENERAL: Patient appearing stated age, in no acute distress. HEENT: Pupils equal and reactive to light and accommodation. Extraocular muscles intact. Mucous membranes moist. Conjunctivae pink. Anicteric sclerae. LUNGS: Bilateral air entry. No wheezes, rhonchi or rales. HEART: Regular rate and rhythm. Normal S1 and S2. ABDOMEN: BS normoactive, soft, nontender, and nondistended. No CVA tenderness. EXTREMITIES: No clubbing, cyanosis. No calf tenderness. Pedal pulses 2+. BLE 2+ pitting edema NEUROLOGICAL: The patient is alert and oriented times 3. CN II-XII intact. No focal deficits on gross sensory or motor examination Labs/Diagnostic Data Labs Test 08/11/24 22:52 08/11/24 19:36 Range/Units Troponin I High Sensitivity 10 </=54 ng/L White Blood Count 6.0 4.4-10.8 10^3/uL Red Blood Count 4.34 L 4.5-5.90 10^6/uL Hemoglobin 10.2 L 13.5-17.5 g/dL Hematocrit 33.8 L 41.0-53.0 % Mean Corpuscular Volume 77.8 L 80.0-100.0 fL Mean Corpuscular Hemoglobin 23.6 L 28.0-32.0 pg Mean Corpuscular Hemoglobin Concent 30.3 L 32.0-36.0 g/dL Red Cell Distribution Width 19.5 H 11.8-14.3 % Platelet Count 341 140-450 10^3/uL Mean Platelet Volume 6.5 L 6.9-10.8 fL Neutrophils (%) (Auto) 60.9 37.0-80.0 % Lymphocytes (%) (Auto) 28.8 10.0-50.0 % Monocytes (%) (Auto) 8.9 0.0-12.0 % Eosinophils (%) (Auto) 0.9 0.0-7.0 % Basophils (%) (Auto) 0.5 0.0-2.0 % Neutrophils # (Auto) 3.7 1.6-8.6 10 ^3/uL Lymphocytes # (Auto) 1.7 0.4-5.4 10 ^3/uL Monocytes # (Auto) 0.5 0-1.3 10 ^3/uL Eosinophils # (Auto) 0.1 0-0.8 10 ^3/uL Basophils # (Auto) 0 0-0.2 10 ^3/uL Nucleated Red Blood Cells 0.1 % Sodium Level 140 136-145 mmol/L Potassium Level 4.4 3.5-5.1 mmol/L Chloride Level 106 98-107 mmol/L Carbon Dioxide Level 24 20-31 mmol/L Anion Gap 10 5-15 Blood Urea Nitrogen 9 9-23 mg/dL Creatinine 0.70 0.700-1.30 mg/dL Glomerular Filtration Rate Calc 96 >90 mL/min BUN/Creatinine Ratio 12.9 10.0-20.0 Serum Glucose 108 H 74-106 mg/dL Calcium Level 10.6 H 8.7-10.4 mg/dL Assessment Gastroenteritis (nausea, vomiting, diarrhea) Chronic systolic / diastolic congestive heart, failure Not in exacerbation Chronic right lower extremity paresthesia History of Parkinson's disease Falls Plan/Recommendation Patient was seen and evaluated ER treatment chairs. Patient's chart was reviewed in its entirety including previous admissions. Laboratory results were reviewed which are all benign. CXR was interpreted per the radiologist and reviewed by myself, impression reads cardiomegaly. CT of the head was interpreted per the radiologist and reviewed by myself, impression with no acute intracranial abnormality. Patient is hemodynamically stable. Vital signs BP 147/92, HR 76, RR 16, O2 saturation 100% on RA. A febrile. Patient treated per the emergency department with 1 L NS bolus. Patient is able to tolerate oral intake after being given Zofran. Please discharge patient home, with prescription for Zofran ODT. O case management has been consulted to establish home safety evaluation. Will also establish JOSE outpatient follow up with cardiology for echocardiogram and to adjust diuretic therapy. Will also establish outpatient follow-up visit when neurology for Parkinson's and right lower extremity paresthesia. Patient is to follow up at [facility] urgent care in the next two days for nausea, vomiting, and diarrhea. Will provide Home health for outpatient physical therapy for recurrent falls. Plan of care was discussed in detail with the patient and his spouse sitting next to him whom both agree and verbalized understanding the plan of care. Patient provided with strict ER precaution including but not limited to dizziness, LOC, headaches, unilateral deficits, short of breath, chest pain. If any of these occur please return to the nearest emergency department for further evaluation of treatment Plan discussed with: Patient, Spouse NOE ETIENNE MD 08/12/24 1246: Family History: Diabetes mellitus G8 FATHER FH: heart attack G8 FATHER FH: hepatic cirrhosis G8 FATHER FH: lung cancer G8 FATHER FH: throat cancer G8 FATHER Family history: Cardiovascular disease G8 MOTHER Allergies: Coded Allergies: NO KNOWN ALLERGIES (Unverified , 01/11/12) Home Meds Active Scripts Pantoprazole Sodium Sesquihydr (Protonix) 40 Mg Tab, 1 TAB PO DAILY for 14 Days, #14 TAB Prov:EMILY MARI MD 08/12/24 Ondansetron Odt 4MG Tab (ZOFRAN PO) 4 Mg Tb, 4 MG PO TID PRN for 4 Days, #12 TAB ODT TAB-DISSOLVE IN MOUTH, THEN SWALLOW Prov:EMILY MARI MD 08/12/24 Spironolactone (Aldactone) 25 Mg Tab, 1 TAB PO DAILY for 10 Days, #10 TAB 1 Refill Prov:CATHI CHAUDHARI MD 04/11/22 Furosemide (Lasix) 20 Mg Tb, 1 TAB PO DAILY for 10 Days, #10 TAB 1 Refill Prov:CATHI CHAUDHARI MD 04/11/22 Tramadol Hcl (Tramadol Hcl) 50 Mg Tab, 50 MG PO TID for 5 Days, #15 TAB Prov:CATHI CHAUDHARI MD 04/11/22 Apixaban Base (Eliquis Starter Pack) 5 Mg Tab, 5 MG PO UD, #74 TAB Take 10 mg by mouth every 12 hours for 7 days then 5 mg by mouth every 12 hours. Prov:MARCIA CULVER MD 06/05/20 Reported Medications Metoprolol Tartrate (Lopressor) 50 Mg Tab, 1 TAB PO BID 10/15/23 Gabapentin (Gabapentin) 800 Mg Tab, 1 TAB PO TID 10/15/23 Rasagiline Mesylate (Rasagiline Mesylate) 1 Mg Tab, 1 TAB PO DAILY 06/04/20 Simvastatin (Simvastatin) 40 Mg Tab, 40 MG PO DAILY for 30 Days 06/04/20 Tamsulosin Hcl (Flomax) 0.4 Mg Cap, 2 CAP PO HS 01/11/12 Additional Comments Additional Comments Additional Comments I agree with the assessment and plan as outlined by my nurse practitioner. MEÑO FLORES NP Aug 12, 2024 01:54 NOE ETIENNE MD Aug 12, 2024 12:46
[2024-08-12] MEDS ORDERED: PANT40TA2 PO (02:30)
[2024-08-12] MEDS ORDERED: ZOFR4T PO (02:30)
== END 2024-08-12 03:23 | disposition home or self-care (01) ==
LOC: ER 18:29 → EDBD 18:29 → ER 08-12 02:58
DX: R55 Syncope and collapse (principal); R20.2 Paresthesia of skin; R53.1 Weakness; M19.90 Unspecified osteoarthritis, unspecified site; I25.10 Atherosclerotic heart disease of native coronary artery without angina pectoris; I11.0 Hypertensive heart disease with heart failure; I50.9 Heart failure, unspecified; E78.5 Hyperlipidemia, unspecified; Z86.73 Personal history of transient ischemic attack (TIA), and cerebral infarction without residual deficits; Z79.899 Other long term (current) drug therapy; Z98.890 Other specified postprocedural states
CPT/HCPCS: 36415; 70450; 71045; 80048; 84484; 85025; 93005; 96361; 96374; 99285; J2405; J7030